=== PATIENT | male | born 1960 | race African-American/Black ===

== ENCOUNTER 2017-04-30 19:02 | Emergency (ER) | payer OTHER ==
[2017-04-30] MEDS: SOD CHLORIDE 0.9% 500 ML IV (19:19)
[2017-04-30 19:23] LABS: ADD MAN DIFF? NO
[2017-04-30 19:32] LABS: WHITE BLOOD COUNT 6.9 10^3/ul (4.8-10.8)
[2017-04-30 19:32] LABS: BASOPHILS % 0.6 % (0.0-2.0); EOSINOPHILS # 0.2 10^3/ul (0.0-0.5); EOSINOPHILS % 3.3 % (0.0-7.0); HEMATOCRIT 32.6 % (42.0-52.0); HEMOGLOBIN 11.9 g/dl (14.0-18.0); LYMPHOCYTES # 1.6 10^3/ul (0.8-2.9); LYMPHOCYTES % 23.1 % (15.0-51.0); MEAN CORPUSCULAR HEMOGLOBIN 28.3 pg (29.0-33.0); MEAN CORPUSCULAR HGB CONC 36.5 g/dl (32.0-37.0); MEAN CORPUSCULAR VOLUME 77.6 fl (82.0-101.0); MEAN PLATELET VOLUME 8.6 fl (7.4-10.4); MONOCYTE # 0.7 10^3/ul (0.3-0.9); MONOCYTES % 9.7 % (0.0-11.0); NEUTROPHIL # 4.4 10^3/ul (1.6-7.5); NEUTROPHILS % 63.2 % (39.0-77.0); PLATELET COUNT 327 10^3/UL (140-415); RED CELL DISTRIBUTION WIDTH 13.9 % (11.5-14.5)
[2017-04-30 19:52] LABS: ANION GAP 17 (8-16); BLOOD UREA NITROGEN 18 mg/dl (7-20); CALCIUM 8.8 mg/dl (8.4-10.2); CARBON DIOXIDE 23 mmol/L (21-31); CHLORIDE 109 mmol/L (97-110); CREATININE 1.06 mg/dl (0.61-1.24); GLUCOSE 156 mg/dl (70-220); POTASSIUM 3.8 mmol/L (3.5-5.1); SODIUM 145 mmol/L (135-144)
[2017-04-30 19:54] LABS: PROTIME 12.2 Sec (11.9-14.9)
[2017-04-30 20:23] LABS: URINE PH (Dip) POC 6.5 (5.0-8.5)
[2017-04-30 20:23] LABS: URINE BLOOD (Dip) POC 3+ (NEGATIVE); URINE GLUCOSE (Dip) POC Negative (NEGATIVE); URINE KETONES (Dip) POC Negative (NEGATIVE); URINE LEUKOCYTE EST (Dip) POC 3+ (NEGATIVE); URINE NITRITE (Dip) POC Positive (NEGATIVE); URINE TOTAL PROTEIN POC 2+ (NEGATIVE)
[2017-04-30 20:24] LABS: URINE BLOOD (Dip) POC 3+ (NEGATIVE); URINE GLUCOSE (Dip) POC Negative (NEGATIVE); URINE KETONES (Dip) POC Negative (NEGATIVE); URINE LEUKOCYTE EST (Dip) POC 3+ (NEGATIVE); URINE NITRITE (Dip) POC Positive (NEGATIVE); URINE TOTAL PROTEIN POC 2+ (NEGATIVE)
[2017-04-30 20:24] LABS: URINE PH (Dip) POC 6.5 (5.0-8.5)
[2017-04-30 20:27] LABS: PARTIAL THROMBOPLASTIN TIME 33.2 Sec (25.0-35.0)
[2017-04-30] MEDS: CEFTRIAXONE 1 GM/50 ML (PMX) 50 ML IVPB (20:58)
[2017-04-30] MEDS ORDERED: DIPHENHYDRAMINE 50 MG INJ (22:03)
[2017-04-30] MEDS ORDERED: HALOPERIDOL 5 MG INJ (22:03)
[2017-04-30] MEDS ORDERED: LORAZEPAM 2 MG INJ (22:04)
[2017-04-30 22:28] LABS: ETHANOL < 10.0 mg/dl
[2017-04-30] MEDS: OLANZAPINE (ODT) 5 MG TAB ODT (22:31)
[2017-04-30] MEDS: IOHEXOL 300MG/ML 150 ML BTL (23:02)
[2017-04-30 23:03] LABS: BARBITURATES Negative (NEGATIVE); BENZODIAZEPINES Negative (NEGATIVE); CANNABINOIDS Positive (NEGATIVE); COCAINE Positive (NEGATIVE); OPIATES Negative (NEGATIVE)
[2017-04-30] MEDS: SOD CHLORIDE 0.9% 100 ML (23:03)
[2017-04-30 23:13] LABS: AMPHETAMINE/METHAMPHETAMINE POSITIVE (NEGATIVE)
[2017-04-30] MEDS: LORAZEPAM 2 MG INJ IV (23:13)
== END 2017-05-01 22:00 | disposition short-term general hospital (02) ==
LOC: E/R 05-01 22:00
DX: F15.10 Other stimulant abuse, uncomplicated (principal); F14.10 Cocaine abuse, uncomplicated; F12.10 Cannabis abuse, uncomplicated; R59.0 Localized enlarged lymph nodes; N30.00 Acute cystitis without hematuria; F17.210 Nicotine dependence, cigarettes, uncomplicated
CPT/HCPCS: 36415; 71045; 74177; 80048; 80306; 80307; 81003; 85025; 85610; 85730; 93971; 96374; 96375; 99285-25

== ENCOUNTER 2018-07-19 15:25 | Emergency (ER) | payer OTHER ==
[2018-07-19] MEDS: ACETAMINOPHEN 500 MG TAB PO (17:48)
[2018-07-19] MEDS: KETOROLAC 60 MG INJ IM (17:49)
== END 2018-07-19 22:37 | disposition home or self-care (01) ==
LOC: FTE 15:25 → E/R 22:37
DX: S93.401A Sprain of unspecified ligament of right ankle, initial encounter (principal); F17.210 Nicotine dependence, cigarettes, uncomplicated; V18.4XXA Pedal cycle driver injured in noncollision transport accident in traffic accident, initial encounter; Y92.009 Unspecified place in unspecified non-institutional (private) residence as the place of occurrence of the external cause
CPT/HCPCS: 73610; 73610-RT; 96372; 99284-25